=== PATIENT | female | born 1970 | race Caucasian/White ===

== ENCOUNTER 2019-05-16 12:41 | Emergency (ER) | payer BC, OTHER ==
[~2019-05-16] VITALS: Ht 162.6 cm; Wt 56.7 kg
[2019-05-16 15:37] VITALS: BP 176/101
== END 2019-05-16 15:50 | disposition home or self-care (01) ==
LOC: ER 12:45
DX: T78.40XA Allergy, unspecified, initial encounter (principal); F17.210 Nicotine dependence, cigarettes, uncomplicated; Z88.1 Allergy status to other antibiotic agents; X58.XXXA Exposure to other specified factors, initial encounter